=== PATIENT | female | born 1975 | race Caucasian/White ===

== ENCOUNTER 2025-08-11 09:05 | Emergency (ER) | payer OTHER ==
[~2025-08-11] VITALS: Ht 157.5 cm; Wt 107.6 kg
[~2025-08-11 09:05] MED LIST: BENZ2TAB48 PO; HALO5TAB33 PO; KEPP10002 PO; TRIL600T PO
[2025-08-11 09:08] VITALS: BP 131/86; TEMP 98.5; O2SAT 96
== END 2025-08-11 10:10 | disposition left against medical advice (07) ==
LOC: M ED 09:05
DX: Z53.21 Procedure and treatment not carried out due to patient leaving prior to being seen by health care provider (principal)